=== PATIENT | male | born 1990 | race African-American/Black ===

== ENCOUNTER 2017-05-29 01:54 | Emergency (ER) | payer OTHER ==
[2017-05-29 02:06] VITALS: BP 144/56
[2017-05-29] MEDS ORDERED: Morphine INJ* 4 MG/ML 1 ML CARPUJECT IM ONE (03:11)
[2017-05-29] MEDS ORDERED: Dexamethasone IV* 4 MG/ML 1 ML (4 MG) IM ONE (05:37)
[2017-05-29] MEDS ORDERED: Ketorolac INJ* 60 MG/2 ML VIAL IM ONE (05:37)
--- NOTE | 2017-05-29 05:40 | ED ---
Mehran Yanes Rebecca, scribed for Nick Llanos MD on 05/29/17 at 0402 . Upper Extremity Pain - HPI Summary HPI Summary: Pt is a 26 y/o M who presents to ED c/o L wrist pain. Sx began a few months ago after a hard hit to the wrist during a sparring match. The pt was able to continue sparring after the injury. Pain has been intermittent since onset, worsening after trying to do his wrist exercises yesterday. On triage, pain was noted to be severe, ranked 20/10. Sx aggravated by movement, alleviated by nothing. Additionally c/o swelling. Denies elbow pain and fever. Pt was seen by Dr. Sesay yesterday and received a medication injection to the L wrist after being told that he "has a crack in it" from an XR that was done. - History of Current Complaint Chief Complaint: EDExtremityUpper Stated Complaint: LEFT WRIST PAIN Time Seen by Provider: 05/29/17 03:11 Hx Obtained From: Patient Mechanism Of Injury: Blunt Trauma Onset/Duration: Started Weeks Ago, Still Present Timing: Intermittent Severity Currently: Severe Pain Location: Wrist - Left Character: Aching Aggravating Factor(s): Movement Alleviating Factor(s): Nothing Associated Signs & Symptoms: Positive: Swelling - Allergies/Home Medications Allergies/Adverse Reactions: Allergies Allergy/AdvReac Type Severity Reaction Status Date / Time No Known Allergies Allergy Verified 02/25/13 19:45 PMH/Surg Hx/FS Hx/Imm Hx Cardiovascular History: Denies: Hx Hypertension Respiratory History: Denies: Hx Asthma Infectious Disease History: No Infectious Disease History: Denies: Traveled Outside the [place] in Last 30 Days - Family History Known Family History: Positive: Hypertension - Social History Alcohol Use: Rare Substance Use Type: Reports: None Smoking Status (MU): Never Smoked Tobacco Review of Systems Negative: Fever Positive: Arthralgia - L wrist pain, Other - NEGATIVE: Elbow pain Positive: Other - L wrist swelling All Other Systems Reviewed And Are Negative: Yes Physical Exam Triage Information Reviewed: Yes Vital Signs On Initial Exam: Initial Vitals Temp Pulse Resp BP Pulse Ox 98.9 F 59 16 144/56 98 05/29/17 02:01 05/29/17 02:01 05/29/17 02:01 05/29/17 02:01 05/29/17 02:01 Vital Signs Reviewed: Yes - [place] Coma Scale Coma Scale Total: 15 Diagnostics - Vital Signs Vital Signs Temp Pulse Resp BP Pulse Ox 05/29/17 03:32 16 05/29/17 02:01 98.9 F 59 16 144/56 98 - Laboratory Lab Statement: Any lab studies that have been ordered have been reviewed, and results considered in the medical decision making process. Course/Dx - Course Assessment/Plan: feel sbetter after meds, given wrist splint and instructed to f /u [facility] hand surgeon Dr. Sesay within 1-2 days. agrees to an [facility] instructions - Diagnoses Provider Diagnoses: Wrist pain, Ulna styloid fracture, closed Discharge - Discharge Plan Condition: Improved Disposition: HOME Patient Education Materials: Wrist Fracture in Adults (ED) Referrals: [facility], [Primary Care Provider] - Radha Sesay MD [Medical Doctor] - Additional Instructions: PLEASE MAKE AN APPOINTMENT FIRST THING IN THE MORNING TO BE SEEN BY DR. SESAY WITHIN 1-2 DAYS PLEASE RETURN TO THE EMERGENCY ROOM IF YOU HAVE ANY WORSENING OR CONCERNING SYMPTOMS The documentation as recorded by the Mehran jimenes Rebecca accurately reflects the service I personally performed and the decisions made by me, Nick Llanos MD.
== END 2017-05-29 06:15 | disposition home or self-care (01) ==
LOC: ED 01:54
DX: S52.612A Displaced fracture of left ulna styloid process, initial encounter for closed fracture (principal); M25.532 Pain in left wrist; W50.0XXA Accidental hit or strike by another person, initial encounter; Y93.89 Activity, other specified; Y92.9 Unspecified place or not applicable
CPT/HCPCS: 96372; 99282; J1100; J1885; J2270